=== PATIENT | male | born 1945 | race Caucasian/White ===

== ENCOUNTER 2019-01-30 09:55 | Day surgery (SDC) | payer MEDICARE, OTHER ==
[~2019-01-30] VITALS: Ht 188 cm; Wt 127.0 kg
[~2019-01-30 09:55] MED LIST: ASPIRIN325 MG PO; FISH OIL 1,0001 EAC3 PO; GARLIC200 MG PO; GLIMEPIRIDE4 MG PO; HYDROCHLOROTH12.5 MG PO; JANUVIA100 MG PO; LIPITOR80 MG PO; LOSARTAN POTAS100 MG PO; METFORMIN HCL1000 MG PO; METOPROLOL TART50 MG PO; NORCO 5-325 TA1 EACH PO; VITAMIN D32000 UNI1 PO
[2019-01-30] MEDS ORDERED: HYDROCODON-ACE1 EA10 PO (11:28)
--- NOTE | 2019-01-30 11:56 | NUR ---
01/30/19 1156 Ingrid Ordoñez 1129 PT ARRIVED IN PACU SLEEPY WITH NO C/O'S. 1146 OXYGEN REMOVED. PT AWAKE TALKING TO STAFF. 1155 SITTING UP IN BED SIPPING ON WATER.
--- NOTE | 2019-02-01 12:30 | OR ---
[facility] [address] [place], [place] [address] Signed DATE OF OPERATION: 01/30/2019 SURGEON: Bridger Hobson MD PREOPERATIVE DIAGNOSIS: Left trigger thumb. POSTOPERATIVE DIAGNOSIS: Left trigger thumb. PROCEDURE PERFORMED: Left trigger thumb release. LACING CUTTER: Mandie Davila PA-C, who was present and critical for all portions of procedure. ANESTHESIA: Kane block. TOURNIQUET TIME: 20 minutes. BRIEF HISTORY: Deja is a 73-year-old gentleman with painful locked trigger thumb. He has been wearing a splint to protect himself. At this point, he was cooperative. DESCRIPTION OF PROCEDURE: Once consent was obtained, he was taken to the operating room. After adequate anesthesia, he was placed on operating table. The hand was prepped and draped in a standard sterile fashion and the A1 luc of the left thumb was approached through a 1 cm incision, this was carried through skin and subcutaneous tissue. Careful dissection was undertaken to identify the radial digital nerve, this was retracted and protected. Under loupe magnification, we were able to dissect the soft tissue aligned, flexor tendon sheath A1 luc was identified and released. The patient was asked to move his thumb. He did move his thumb, but passive motion showed no hitch in the tendon itself. The wound was copiously irrigated with antibiotic solution, closed with 3-0 nylon and injected with 5 mL of 0.25% plain Marcaine. It was dressed with bacitracin, Adaptic 4 x 8 gauze. He tolerated the procedure well. All sponge, needle, and instrument counts were correct. Electronically Signed By: BRIDGER HOBSON MD 02/01/19 1230 PATIENT NAME: DEJA RODRIGUEZ OPERATIVE REPORT DATE OF : 49 REPORT #: [id number] PHYSICIAN: BRIDGER HOBSON MD PCP: KEN LANDERS PA-C REPORT IS CONFIDENTIAL AND NOT TO BE RELEASED WITHOUT AUTHORIZATION [facility] [address] [place], [place] [address], [place] [address] Signed Bridger Hobson MD BA/MODL /[id number] Copies: ~ Electronically Signed By: BRIDGER HOBSON MD 02/01/19 1230 PATIENT NAME: DEJA RODRIGUEZ OPERATIVE REPORT DATE OF : 49 REPORT #: [id number] PHYSICIAN: BRIDGER HOBSON MD PCP: KEN LANDERS PA-C REPORT IS CONFIDENTIAL AND NOT TO BE RELEASED WITHOUT AUTHORIZATION
== END 2019-01-30 12:10 | disposition home or self-care (01) ==
LOC: OPS 09:55 → DS 09:55 → OPS 11:15 → DS 13:15
PROVIDERS: Specialist
PROC: 0LN80ZZ Release Left Hand Tendon, Open Approach (ICD-10-PCS; principal; 2019-01-30 11:15)
DX: M65.312 Trigger thumb, left thumb (principal); E11.9 Type 2 diabetes mellitus without complications; I25.2 Old myocardial infarction; E66.01 Morbid (severe) obesity due to excess calories; Z79.899 Other long term (current) drug therapy; Z79.84 Long term (current) use of oral hypoglycemic drugs; Z79.82 Long term (current) use of aspirin; Z87.891 Personal history of nicotine dependence; Z68.35 Body mass index [BMI] 35.0-35.9, adult
CPT/HCPCS: 01810; J0690; J1100; J1885; J2250; J2405; J2704; J2765; J3010; J7120

== ENCOUNTER 2020-05-12 08:07 | Day surgery (SDC) | payer MEDICARE, OTHER ==
[~2020-05-12] VITALS: Ht 188 cm; Wt 127.5 kg
[~2020-05-12 08:07] MED LIST changes: +GABAPENTIN300 MG PO; +HYDROCODON-ACE1 EA10 PO
--- NOTE | 2020-05-12 10:48 | NUR ---
05/12/20 Joan8 Jo Ann Stoddard 1045-PATIENT ARRIVED TO PACU ON 2L NC RR EVEN. AWAKE DENIES PAIN OR NAUSEA. ABDOMEN ROUND ENCOURAGED TO PASS GAS. IVF INFUSING.
--- NOTE | 2020-05-13 08:56 | OR ---
[facility] [address] [place], [place] [address] Signed DATE OF OPERATION: 05/12/2020 SURGEON: Mely Hurley MD PREOPERATIVE DIAGNOSES: 1. Father with colon cancer in his 60s. 2. Personal history of colonic polyps. 3. Diverticulosis. POSTOPERATIVE DIAGNOSES: 1. A 4 mm polyp at 50 cm. 2. Minimal to moderate left-sided diverticulosis. 3. Minimal internal hemorrhoids. PROCEDURE: Colonoscopy with hot biopsy. ESTIMATED BLOOD LOSS: None. INDICATIONS: Deja is a 74-year-old gentleman asked to see me for followup colonoscopy. We know his father had colon cancer in his 60s. Deja is known to have diverticulosis and he had hyperplastic polyps removed in 2008 and again in 2013. He said more recently he has no lower GI complaints. In the office, I gave Deja a pamphlet on colonoscopy and we looked at that together. He understands the nature of the test along with the risks including, but not limited to gas bloating, crampy abdominal pain, bleeding, perforation requiring surgery, and missed diagnosis. We also discussed the need for IV conscious sedation, he had expressed understanding and wished to proceed. DESCRIPTION OF PROCEDURE: Deja was taken into our endoscopy suite and placed in the left lateral decubitus position. He was given a total of 7 mg of Versed and 100 mcg of fentanyl. Even then he woke up a couple of times during the test and was talking to us in recovery room. A digital rectal exam had been performed and he does have fairly significant prostate gland. It seems more prominent inferiorly review with his primary care provider. After this, the adult colonoscope was introduced and advanced all around into the cecum under direct visualization of camera without difficulty. His prep was quite good. We could easily see the appendiceal orifice and the ileocecal valve. The camera was slowly withdrawn. He had a small polyp removed at 50 cm. He also has diverticula Electronically Signed By: MELY HURLEY MD 05/13/20 0856 PATIENT NAME: DEJA RODRIGUEZ OPERATIVE REPORT DATE OF : 49 REPORT #: [id number] PHYSICIAN: MELY HURLEY MD PCP: KEN LANDERS PA-C REPORT IS CONFIDENTIAL AND NOT TO BE RELEASED WITHOUT AUTHORIZATION [facility] [address] [place], [place] [address] Signed in the left colon. They were minimal and moderate in size, minimal to moderate in number, and scattered about. Once in the rectum, the scope was then retroflexed and he does have just very minimal internal hemorrhoid tissue. After this, the gas was suctioned out and the colonoscope removed. Deja tolerated procedure quite well. RECOMMENDATIONS: Deja will see me in my office in 7 to 14 days to review his results. It looks like he will stay on the 5-year rotation. Mely Hurley MD ALB/MODL /[id number] cc: MD Mely Lopez MD Copies: CESILIA MARTINEZ MD, ANDREW L MD ~ Electronically Signed By: MELY HURLEY MD 05/13/20 0856 PATIENT NAME: DEJA RODRIGUEZ OPERATIVE REPORT DATE OF : 49 REPORT #: [id number] PHYSICIAN: MELY HURLEY MD PCP: KEN LANDERS PA-C REPORT IS CONFIDENTIAL AND NOT TO BE RELEASED WITHOUT AUTHORIZATION
--- NOTE | 2020-05-13 14:47 | PATH ---
[facility] [address] [place], [place] [address] Signed SPECIMEN(S): A COLON POLYP AT 50 CM SPECIMEN SOURCE: A. COLON POLYP AT 50 CM CLINICAL HISTORY: Colonoscopy. History of polyps, family history of colon CA, diverticulosis, colon polyp. MICROSCOPIC DESCRIPTION: Histologic sections of all submitted blocks are examined by light microscopy. These findings, together with the gross examination, support the pathologic diagnosis. FINAL PATHOLOGIC DIAGNOSIS: Colon polyp at 50 cm, biopsy: - Tubular adenoma (one fragment). JVR:sm:C2NR GROSS DESCRIPTION: The specimen, labeled "RS, 1," and designated on the requisition "colon polyp at 50 cm," is received in formalin and consists of one wilkerson soft tissue polypoid fragment that measures 0.3 cm in greatest dimension. The specimen is entirely submitted in cassette (A1). AT (under the direct supervision of a pathologist) The Gross Description was prepared using a voice recognition system. The report was reviewed for accuracy; however, sound-alike word errors, addition and/or deletions may occur. If there is any question about this report, please contact Client Services. PERFORMING LABORATORY: The technical component was performed by [facility], [address] [place] [id number] (Leases And Land Supervisor: Vicki Bloom MD; CLIA# [id number]). Professional interpretation was performed by [facility], [facility], [address] [place] [id number] (Leases And Land Supervisor: Omer Soliz M.D.). Diagnostician: Omer Soliz MD Pathologist Electronically Signed 05/13/2020 PATIENT NAME: DEJA RODRIGUEZ PATHOLOGY DATE OF : 49 REPORT #: [id number] PHYSICIAN: GREG ZUNIGA PCP: KEN LANDERS PA-C REPORT IS CONFIDENTIAL AND NOT TO BE RELEASED WITHOUT AUTHORIZATION [address] [address] Signed Copies: ~ PATIENT NAME: DEJA RODRIGUEZ PATHOLOGY DATE OF : 49 REPORT #: [id number] PHYSICIAN: GREG PATHOLOGY PCP: KEN LANDERS PA-C REPORT IS CONFIDENTIAL AND NOT TO BE RELEASED WITHOUT AUTHORIZATION
== END 2020-05-12 11:20 | disposition home or self-care (01) ==
LOC: OPS 08:07 → DS 08:13 → OPS 09:45
PROVIDERS: Colon & Rectal Surgery
PROC: 0DBE8ZZ Excision of Large Intestine, Via Natural or Artificial Opening Endoscopic (ICD-10-PCS; principal; 2020-05-12 09:45)
DX: D12.6 Benign neoplasm of colon, unspecified (principal); K64.8 Other hemorrhoids; K57.30 Diverticulosis of large intestine without perforation or abscess without bleeding; E11.42 Type 2 diabetes mellitus with diabetic polyneuropathy; I10 Essential (primary) hypertension; E78.5 Hyperlipidemia, unspecified; E66.9 Obesity, unspecified; Z68.35 Body mass index [BMI] 35.0-35.9, adult; Z86.010 Personal history of colon polyps; Z80.0 Family history of malignant neoplasm of digestive organs; Z79.82 Long term (current) use of aspirin; Z79.84 Long term (current) use of oral hypoglycemic drugs; Z79.899 Other long term (current) drug therapy; Z87.891 Personal history of nicotine dependence
CPT/HCPCS: 99153; G0500; J2250; J3010; J7121

== ENCOUNTER 2021-01-04 10:43 | Emergency (ER) | payer MEDICARE, OTHER ==
[~2021-01-04] VITALS: Ht 188 cm; Wt 130.6 kg
--- NOTE | 2021-01-04 19:16 | EKG ---
[facility] [address] [facility] [place] [address] Signed Sinus rhythm with 1st degree AV block RSR' or QR pattern in V1 suggests right ventricular conduction delay Anterolateral infarct , age undetermined Abnormal ECG No previous ECGs available Confirmed by JAMES SPRAGUE MD ([id number]) on 01/04/2021 7:16:05 PM Electronically Signed By: JAMES SPRAGUE MD 01/04/21 1916 PATIENT NAME: JENNIFERDEJA OPAL Electrocardiogram DATE OF : 49 PHYSICIAN: JAMES SPRAGUE MD REPORT #: [id number] REPORT IS CONFIDENTIAL AND NOT TO BE RELEASED WITHOUT AUTHORIZATION
== END 2021-01-04 13:25 | disposition home or self-care (01) ==
LOC: ED 10:43
DX: R53.1 Weakness (principal); I25.10 Atherosclerotic heart disease of native coronary artery without angina pectoris; Z20.822 Contact with and (suspected) exposure to COVID-19; Z87.891 Personal history of nicotine dependence; Z79.899 Other long term (current) drug therapy; Z79.82 Long term (current) use of aspirin; Z79.84 Long term (current) use of oral hypoglycemic drugs
CPT/HCPCS: 71045; 80053; 81001; 84132; 84484; 85025; 93005; 93010; 99285-25; C9803; J7030; U0003

== ENCOUNTER 2023-01-17 15:23 | Emergency (ER) | payer MEDICARE, OTHER ==
[~2023-01-17] VITALS: Ht 188 cm; Wt 124.7 kg
[2023-01-17] MEDS ORDERED: OZEMPIC1 MG/0.71 SQ (15:34)
[2023-01-17] MEDS ORDERED: TERBINAFINE HC250 MG PO (15:35)
[2023-01-17] MEDS ORDERED: LASIX20 MG PO (19:49)
[2023-01-17] MEDS ORDERED: AZITHROMYCIN500 MG PO (19:49)
--- NOTE | 2023-01-17 20:40 | EKG ---
[facility] [address] [facility] [place] [address] Signed Sinus tachycardia with 1st degree AV block Nonspecific intraventricular block Possible Anterolateral infarct (cited on or before 04-JAN-2021) Abnormal ECG When compared with ECG of 08-FEB-2022 09:23, Serial changes of Anterior infarct present Confirmed by TERRANCE QUINTANA MD ([id number]) on 01/17/2023 8:40:11 PM Electronically Signed By: TERRANCE QUINTANA MD 01/17/232039 PATIENT NAME: DEJA RODRIGUEZ Electrocardiogram DATE OF : 49 PHYSICIAN: TERRANCE QUINTANA MD REPORT #: [id number] REPORT IS CONFIDENTIAL AND NOT TO BE RELEASED WITHOUT AUTHORIZATION
== END 2023-01-17 20:34 | disposition home or self-care (01) ==
LOC: ED 15:23
DX: J18.9 Pneumonia, unspecified organism (principal); I50.9 Heart failure, unspecified; E11.9 Type 2 diabetes mellitus without complications; I25.2 Old myocardial infarction; Z79.899 Other long term (current) drug therapy; Z79.82 Long term (current) use of aspirin; Z79.84 Long term (current) use of oral hypoglycemic drugs; Z20.822 Contact with and (suspected) exposure to COVID-19
CPT/HCPCS: 36415; 71045; 80053; 83735; 83880; 84484; 85025; 87502; 93005; 93010; C9803; J1940; U0003

== ENCOUNTER 2024-06-26 08:43 | Day surgery (SDC) | payer MEDICARE, OTHER ==
[2024-06-19 13:27] VITALS: BP 135/74
[~2024-06-26] VITALS: Ht 188 cm; Wt 105.5 kg
[~2024-06-26 08:43] MED LIST changes: +AZITHROMYCIN500 MG PO; +FARXIGA10 MG PO; +FUROSEMIDE40 MG PO; +IBLOOD GLUCOSE TEST STRIP 1 EA TEST VI PRN; +LACTATED RINGER'S 1,000 ML IV SCH; +LASIX20 MG PO; +LIDOCAINE HCL 1% 5 ML SDV INJ ONE; +METOPROLOL SUCC50 MG PO; +OZEMPIC1 MG/0.71 SQ; +TERBINAFINE HC250 MG PO
[2024-06-26 09:07] VITALS: BP 153/81
[2024-06-26] MEDS ORDERED: LIDOCAINE HCL 2% 5 ML SDV ONE (09:54)
[2024-06-26] MEDS ORDERED: propofoL 200 MG/20 ML VIAL ONE ×2 (09:54)
--- NOTE | 2024-06-26 11:10 | NUR ---
06/26/24 1110 Jo Ann Stoddard 1103-PATIENT ARRIVED TO PACU ON RA RR EVEN. PATIENT REACTIVE TO VERBAL STIMULI DENIES PAIN OR NAUSEA. LAYING LEFT LATERAL IVF INFUSING. ABDOMEN SOFT ENCOURAGED TO PASS GAS. SR.
[2024-06-26 11:33] VITALS: BP 138/79
--- NOTE | 2024-06-27 06:13 | OR ---
[facility] [address] [place], [place] [address] Signed DATE OF OPERATION: 06/26/2024 SURGEON: Mely Hurley MD PREOPERATIVE DIAGNOSES: 1. Possible cholelithiasis on recent CT scan. 2. Chronic diarrhea now with anorexia, early satiety and weight loss of 12 pounds over about six months. 3. Father with colon cancer in his 60s. 4. History of hyperplastic adenomatous polyps, diverticulosis and internal hemorrhoids. POSTOPERATIVE DIAGNOSES: 1. Mild diffuse gastroduodenitis. 2. Multiple shallow ulcerations greater in the pyloric bulb and the antrum. 3. Unremarkable ampulla of Vater. 4. Small hiatal hernia (2-3 cm). 5. GE junction at 40 cm. 6. 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 7. Unremarkable colonoscopy. PROCEDURES: 1. EGD with CLOtest and biopsies of pyloric bulb and antrum. 2. Colonoscopy without biopsy. ESTIMATED BLOOD LOSS: None. INDICATIONS: Duong is a 79-year-old diabetic gentleman, asked to see me for both upper and lower endoscopy. There was some concern also that he might have cholelithiasis on a recent CT scan. Duong has not had an ultrasound of the gallbladder to this date. He has also been taking metformin, glimepiride and Ozempic for his diabetes. He has developed diarrhea mainly after he eats. He said he can spend 5 or 6 hours at night sitting on the toilet. He has been anorexic and having early satiety. He has lost about 12 pounds over six months. It seems to be a combination of the diarrhea and his decreased p.o. intake. His stool studies have all been negative including Clostridium difficile toxin, Helicobacter pylori, ova and parasites, , Giardia, stool white blood cells, stool culture and guaiac studies. He had been mildly anemic with a hemoglobin around 12.9, but it is up over 15. His mean cell volume was good at 89. His liver function tests apparently were good. He said he had a CT scan in April of this year and going Electronically Signed By: MELY HURLEY MD 06/27/24 0613 PATIENT NAME: DEJA RODRIGUEZ OPERATIVE REPORT DATE OF : 49 REPORT #: [id number] PHYSICIAN: MELY HURLEY MD PCP: KEN LANDERS PA-C REPORT IS CONFIDENTIAL AND NOT TO BE RELEASED WITHOUT AUTHORIZATION [facility] [address] [place], [place] [address] Signed back, it looks like the gallbladder was unremarkable. He had bilateral adrenal nodules measuring 2.9 cm on the right and 1.9 cm on the left. Because of the metal in his back, he underwent CT scan with and without contrast and those appear to be adenomatous. He also has peripheral arterial disease. These adrenal adenomas have not changed in size. We looked back and he had a colonoscopy in 2008 at the age of 63. We know his father had colon cancer in his 60s. Duong had hyperplastic polyps and apparently had some diverticulosis. He came back in 2013 at age of 68. Again, some hyperplastic polyps and diverticulosis. He then came in 2019 at the age of 74. He had a tubular adenomatous polyp remove and had little diverticulosis along with some internal hemorrhoids. He has been on the five year plan. He said he has been using a little bit of Imodium for his diarrhea. He has not had any change in his diabetic medications up to this point. I had met with Duong and his in the office. I gave him pamphlets on both upper and lower endoscopy. We reviewed the nature of the two tests. There is risk including, but not limited to gas bloating, crampy abdominal pain, bleeding, perforation requiring surgery, and missed diagnosis. We also reviewed the written instructions for a bowel prep line by line. He also understands the need for monitored anesthesia care given his advancing age and decreasing functional status and other medical issues. He had expressed understanding and wished to proceed. PROCEDURE IN DETAIL: Duong was taken into our endoscopy suite and placed in the supine semi-recumbent position. A bite block was utilized for the case. He was given monitored anesthesia care with propofol infusion per our nurse poultry dressing worker. The adult gastroscope was introduced and advanced under direct visualization of the camera without difficulty. The duodenum proper and the ampulla of Vater were unremarkable. However, the pyloric bulb and the stomach showed mild to moderate diffuse gastroduodenitis with multiple small superficial ulcerations. This may all be related to his aspirin use. There is no active bleeding. Upon retroflexion of the scope, it looks like he has just a small hiatal hernia. We saw a little better when we brought the camera up to the GE junction, which is at about 40 cm. Just above the GE junction in the distal esophagus, there is a bifid lesion, it is a little unusual. I did not convince this is inflammatory polyp. We decided not to biopsy or pass a snare with that on this particular occasion. We did not see any obvious Collins's esophagus. There was no distal esophagitis. The middle and upper esophagus were unremarkable. The bifid lesion does not appear to have the appearance of any cancer. After this, the gas was suctioned out and the gastroscope removed. Deja tolerated the procedure well. Deja was then rotated into the left lateral decubitus position. He was maintained on monitored anesthesia care with propofol infusion. A digital rectal exam was performed and this was unremarkable. He had good sphincter tone. There were no external hemorrhoids. There were no masses. The adult colonoscope was introduced and advanced all around into the cecum under direct visualization of the camera without difficulty. Electronically Signed By: MELY HURLEY MD 06/27/24 0613 PATIENT NAME: DEJA RODRIGUEZ OPERATIVE REPORT DATE OF : 49 REPORT #: [id number] PHYSICIAN: MELY HURLEY MD PCP: KEN LANDERS PA-C REPORT IS CONFIDENTIAL AND NOT TO BE RELEASED WITHOUT AUTHORIZATION [facility] [address] [place], [place] [address] Signed He had a good prep. He had just a little bit of dark green bile in the cecum, which was irrigated and suctioned out completely. We could easily see the appendiceal orifice and the ileocecal valve. The scope was then slowly withdrawn. On this occasion, we found no polyps nor did we see any diverticula. The rectum was unremarkable. Upon retroflexion of the scope, there was very minimal if any internal hemorrhoid tissue. The gas was then suctioned out and the colonoscope removed. Duong tolerated the lower endoscopy quite well. RECOMMENDATIONS: I will see Duong back in my office in 7 to 14 days to review his results. He may or may not need ultrasound for his gallbladder with respect to the possibility of gallstones. Although, his constellation symptoms are not entirely be attributable to the gallbladder. It may be more attributable to his diabetic medications. He also might consider endoscopic ultrasound to better evaluate this lesion in the distal esophagus and consider having it biopsied or removed at a larger center. Mely Hurley MD ALB/MODL /[id number] cc: MILLY Elena MD Copies: MELY HURLEY MD ~ Electronically Signed By: MELY HURLEY MD 06/27/24 0613 PATIENT NAME: DEJA RODRIGUEZ OPERATIVE REPORT DATE OF : 49 REPORT #: [id number] PHYSICIAN: MELY HURLEY MD PCP: KEN LANDERS PA-C REPORT IS CONFIDENTIAL AND NOT TO BE RELEASED WITHOUT AUTHORIZATION
--- NOTE | 2024-06-28 17:46 | PATH ---
[facility] [address] [place], [place] [address] Signed SPECIMEN(S): A DUODENAL BIOPSY SPECIMEN(S): B DUODENUM BULB BIOPSY SPECIMEN(S): C ANTRUM/PYLORUS BIOPSY SPECIMEN SOURCE: A. DUODENAL BIOPSY B. DUODENUM BULB BIOPSY C. ANTRUM/PYLORUS BIOPSY CLINICAL HISTORY: History of diarrhea, family history of colon cancer, history of colon polyps, diverticulosis, gastritis, gastroduodenitis, duodenal ulcer/polypoid lesion distal esophagus/unremarkable colon FINAL PATHOLOGIC DIAGNOSIS: A. Duodenum biopsy: - Benign duodenal mucosa, negative for specific diagnostic abnormality. B. Duodenal bulb biopsy: - Benign duodenal mucosa with heterotopic gastric epithelium, negative for atypical features. - Focal acute mucosal inflammation (duodenitis). C. Antrum/pylorus biopsy: - Benign gastric mucosa with focal slight chronic inflammation. - Negative for atypical epithelial features. JVR:clv MICROSCOPIC EXAMINATION: Histologic sections of all submitted blocks are examined by light microscopy. These findings, together with the gross examination, support the pathologic diagnosis. GROSS DESCRIPTION: A. The specimen, labeled and designated "Seble, duodenal biopsy," is received in formalin and consists of one wilkerson soft tissue fragment, 0.3 cm. Entirely submitted in (A1). B. The specimen, labeled and designated "Seble, duodenal bulb biopsy," is received in formalin and consists of two wilkerson soft tissue fragments, ranging from 0.2-0.3 cm. Entirely submitted in (B1). C. The specimen, labeled and designated "Seble, antrum/pylorus biopsy," is received in formalin and consists of one wilkerson soft tissue fragment, 0.2 cm. Entirely submitted in (C1). PATIENT NAME: DEJA RODRIGUEZ PATHOLOGY DATE OF : 49 REPORT #: [id number] PHYSICIAN: GREG PATHOLOGY PCP: KEN LANDERS PA-C REPORT IS CONFIDENTIAL AND NOT TO BE RELEASED WITHOUT AUTHORIZATION [facility] [address] [place] [facility] [place] [place] [address] Signed VB (under the direct supervision of a pathologist) The Gross Description was prepared using a voice recognition system. The report was reviewed for accuracy; however, sound-alike word errors, addition and/or deletions may occur. If there is any question about this report, please contact Client Services. PERFORMING LABORATORY: Technical component was performed by [facility], [address] [place] [id number] (CLIA# [id number]). Professional interpretation was performed by [facility], [address] [place] [id number] (CLIA#: [id number]). Diagnostician: Omer Soliz MD Pathologist Electronically Signed 06/28/2024 Copies: ~ PATIENT NAME: DEJA RODRIGUEZ PATHOLOGY DATE OF : 49 REPORT #: [id number] PHYSICIAN: GREG ZUNIGA PCP: KEN LANDERS PA-C REPORT IS CONFIDENTIAL AND NOT TO BE RELEASED WITHOUT AUTHORIZATION
== END 2024-06-26 11:45 | disposition home or self-care (01) ==
LOC: DS 08:43
PROVIDERS: ATTEND Colon & Rectal Surgery
PROC: 0DB68ZX Excision of Stomach, Via Natural or Artificial Opening Endoscopic, Diagnostic (ICD-10-PCS; 2024-06-26)
PROC: 0DJD8ZZ Inspection of Lower Intestinal Tract, Via Natural or Artificial Opening Endoscopic (ICD-10-PCS; 2024-06-26)
PROC: 0DB98ZX Excision of Duodenum, Via Natural or Artificial Opening Endoscopic, Diagnostic (ICD-10-PCS; principal; 2024-06-26 10:15)
PROC: 0DB78ZX Excision of Stomach, Pylorus, Via Natural or Artificial Opening Endoscopic, Diagnostic (ICD-10-PCS; 2024-06-26 10:15)
DX: K29.90 Gastroduodenitis, unspecified, without bleeding (principal); K29.50 Unspecified chronic gastritis without bleeding; K44.9 Diaphragmatic hernia without obstruction or gangrene; K22.81 Esophageal polyp; R19.7 Diarrhea, unspecified; E11.22 Type 2 diabetes mellitus with diabetic chronic kidney disease; I12.9 Hypertensive chronic kidney disease with stage 1 through stage 4 chronic kidney disease, or unspecified chronic kidney disease; N18.31 Chronic kidney disease, stage 3a; E11.42 Type 2 diabetes mellitus with diabetic polyneuropathy; I25.2 Old myocardial infarction; E78.5 Hyperlipidemia, unspecified; Z79.899 Other long term (current) drug therapy; Z79.84 Long term (current) use of oral hypoglycemic drugs; Z79.82 Long term (current) use of aspirin
CPT/HCPCS: 00813; 36415; 87077; 88305; J2001; J2704; J7121

== ENCOUNTER 2025-02-18 16:15 | Observation (INO) | payer MEDICARE, OTHER | END 2025-02-19 14:40 | disposition home or self-care (01) | LOC: ED 16:15 → MS 16:16 | PROVIDERS: ADMIT Student in an Organized Health Care Education/Training Program | DX: J18.9 Pneumonia, unspecified organism (principal); J96.01 Acute respiratory failure with hypoxia; K52.9 Noninfective gastroenteritis and colitis, unspecified; I13.0 Hypertensive heart and chronic kidney disease with heart failure and stage 1 through stage 4 chronic kidney disease, or unspecified chronic kidney disease; E11.22 Type 2 diabetes mellitus with diabetic chronic kidney disease; N18.9 Chronic kidney disease, unspecified; I50.9 Heart failure, unspecified; N17.9 Acute kidney failure, unspecified; I25.10 Atherosclerotic heart disease of native coronary artery without angina pectoris; E11.40 Type 2 diabetes mellitus with diabetic neuropathy, unspecified; I25.2 Old myocardial infarction; E78.5 Hyperlipidemia, unspecified; Z87.891 Personal history of nicotine dependence; Z79.82 Long term (current) use of aspirin; Z79.84 Long term (current) use of oral hypoglycemic drugs; Z79.85 Long-term (current) use of injectable non-insulin antidiabetic drugs; Z79.899 Other long term (current) drug therapy ==